=== PATIENT | female | born 1990 | race American Indian/Alaskan Native ===

== ENCOUNTER 2019-04-15 09:57 | Emergency (ER) | payer SELFPAY ==
[2019-04-15 10:34] VITALS: BP 121/83
--- NOTE | 2019-04-15 14:15 | XRay Report ---
CHEST 2 VIEWS INDICATION: cough. COMPARISON: None. FINDINGS: Support devices: None. Heart: Within normal limits. Pulmonary vasculature: Normal. Lungs/pleura: Lungs are normally expanded and clear. No pneumothorax. Additional findings: None. IMPRESSION: 1. Normal chest. Signer Name: Karan Rivas MD Signed: 04/15/2019 2:10 PM Workstation Name: [id number]
[2019-04-15] MEDS ORDERED: predniSONE 50 MG TAB PO STA (14:50)
--- NOTE | 2019-04-15 15:39 | Emergency Department Report ---
- General Chief Complaint: Upper Respiratory Infection Stated Complaint: BAODYACHE, RUNNY NOSE,COUGHING Time Seen by Provider: 04/15/19 13:43 Source: patient Mode of arrival: Ambulatory Limitations: No Limitations - History of Present Illness MD Complaint: cough, rhinorrhea, nasal congestion Consistency: constant Improves With: nothing Associated Symptoms: chills, myalgias, headache, rhinorrhea, nasal congestion, cough. denies: stiff neck, chest pain, vomiting, right sweats, epistaxis - Related Data Previous Rx's Medication Instructions Recorded Last Taken Type Albuterol INH(or & Nicu Only) 2 puff IH QID PRN #8.5 gram 04/15/19 Unknown Rx [ProAir HFA Inhaler] Benzonatate [Tessalon Perles] 100 mg PO Q8HR #20 capsule 04/15/19 Unknown Rx predniSONE [Deltasone] 20 mg PO QDAY #7 tab 04/15/19 Unknown Rx Allergies Allergy/AdvReac Type Severity Reaction Status Date / Time No Known Allergies Allergy Unverified 04/15/19 10:11 ED Review of Systems ROS: Stated complaint: BAODYACHE, RUNNY NOSE,COUGHING Other details as noted in HPI Comment: All other systems reviewed and negative ED Past Medical Hx - Past Medical History Previous Medical History?: No - Surgical History Past Surgical History?: No - Social History Smoking Status: Never Smoker Substance Use Type: None - Medications Home Medications: Home Medications Medication Instructions Recorded Confirmed Last Taken Type Albuterol INH(or & Nicu Only) 2 puff IH QID PRN #8.5 gram 04/15/19 Unknown Rx [ProAir HFA Inhaler] Benzonatate [Tessalon Perles] 100 mg PO Q8HR #20 capsule 04/15/19 Unknown Rx predniSONE [Deltasone] 20 mg PO QDAY #7 tab 04/15/19 Unknown Rx ED Physical Exam - General Limitations: No Limitations General appearance: alert, in no apparent distress - Head Head exam: Present: atraumatic, normocephalic - Eye Eye exam: Present: normal appearance. Absent: conjunctival injection, nystagmus - ENT ENT exam: Present: mucous membranes moist, other (Nasal congestion bilaterally with posterior pharyngeal erythema and posterior nasal drainage. Small effusion behind the ears bilaterally. Lungs are clear to auscultation no lym phadenopathy.) - Neck Neck exam: Present: normal inspection. Absent: lymphadenopathy - Respiratory Respiratory exam: Present: normal lung sounds bilaterally, rhonchi. Absent: respiratory distress, wheezes, rales, chest wall tenderness, accessory muscle use, decreased breath sounds - Cardiovascular Cardiovascular Exam: Present: regular rate, normal rhythm. Absent: systolic murmur, diastolic murmur, rubs, gallop - GI/Abdominal GI/Abdominal exam: Present: soft, normal bowel sounds - Extremities Exam Extremities exam: Present: normal inspection - Back Exam Back exam: Present: normal inspection - Neurological Exam Neurological exam: Present: alert, oriented X3 - Psychiatric Psychiatric exam: Present: normal affect, normal mood - Skin Skin exam: Present: warm, dry, intact, normal color. Absent: rash ED Course Vital Signs 04/15/19 10:27 Temperature 100.8 F H Pulse Rate 90 Respiratory 18 Rate Blood Pressure 121/83 O2 Sat by Pulse 97 Oximetry ED Medical Decision Making - Medical Decision Making This patient presents with acute cough, most consistent with influenza or bronchitis. Differential diagnosis includes pneumonia, influenza, bronchitis. Presentation is consistent with acute bacterial pneumonia, influenza, asthma, transient airway hyperresponsiveness. Presentation not consistent with chronic causes of cough (including GERD, asthma, postnasal discharge, medication side effect, CHF, lung cancer or mass). Plan: Normal CXR, supportive care, reassess Critical care attestation.: If time is entered above; I have spent that time in minutes in the direct care of this critically ill patient, excluding procedure time. ED Disposition Clinical Impression: Fever, Bronchitis, Viral syndrome Disposition: [id number] TO HOME OR SELFCARE Is pt being admited?: No Does the pt Need Aspirin: No Condition: Stable Instructions: Chronic Bronchitis (ED), Viral Syndrome (ED) Prescriptions: predniSONE [Deltasone] 20 mg PO QDAY #7 tab Albuterol INH(or & Nicu Only) [ProAir HFA Inhaler] 2 puff IH QID PRN #8.5 gram PRN Reason: Shortness Of Breath Benzonatate [Tessalon Perles] 100 mg PO Q8HR #20 capsule Referrals: PRIMARY CARE, [Primary Care Provider] - 3-[address] [facility] [Provider Group] - 3-5 Days
== END 2019-04-15 15:58 | disposition home or self-care (01) ==
LOC: ED 09:57
DX: B34.9 Viral infection, unspecified (principal); J40 Bronchitis, not specified as acute or chronic
CPT/HCPCS: 71046; 99283; J7512